=== PATIENT | female | born 1980 | race Hispanic/Latino ===

== ENCOUNTER 2018-12-20 00:27 | Observation (INO) | payer BC, OTHER ==
[~2018-12-20] VITALS: Ht 152.4 cm; Wt 62.6 kg
[2018-12-20] MEDS ORDERED: LACTATED RINGERS 1000ML 1,000 ML IV PRN (00:46)
[2018-12-20 01:04] LABS: APPEARANCE,URINE Clear (CLEAR); BILIRUBIN,URINE Negative (NEGATIVE); COLOR,URINE Yellow (YELLOW); GLUCOSE, URINE (UA) Negative (NEGATIVE); KETONES,URINE 15 mg/dL (NEGATIVE); LEUKOCYTE ESTERASE ,URINE Negative (NEGATIVE); NITRATE,URINE Negative (NEGATIVE); OCCULT BLOOD,URINE Negative (NEGATIVE); PH,URINE 6.5 (5.0-8.0); PROTEIN,URINE Negative (NEGATIVE); UROBILINOGEN,URINE 0.2 mg/dL (0.2-1.0)
[2018-12-20 01:19] LABS: AMPHET/METH SCREEN,URINE NEGATIVE (NEGATIVE); BARBITURATE SCREEN, URINE NEGATIVE (NEGATIVE); BENZODIAZEPINES SCREEN,URINE NEGATIVE (NEGATIVE); CANNABINOID SCREEN,URINE NEGATIVE (NEGATIVE); COCAINE SCREEN,URINE NEGATIVE (NEGATIVE); OPIATE SCREEN,URINE NEGATIVE (NEGATIVE); PHENCYCLIDINE SCREEN,URINE NEGATIVE (NEGATIVE)
[2018-12-20 01:32] LABS: HEMATOCRIT 33.1 % (36-48); MEAN CORPUSCULAR HEMOGLOBIN 30.4 pg (27.0-33.0); MEAN CORPUSCULAR HGB CONC 33.8 g/dL (32.0-36.0); PLATELET COUNT (AUTO) 228 K/uL (130-400); RED BLOOD CELL COUNT(AUTO) 3.68 MIL/uL (4.00-5.50); RED CELL DISTRIBUTION WIDTH 14.1 % (11.0-15.5)
[2018-12-20] MEDS ORDERED: MAGNESIUM SULFATE 1,000 ML IV PRN (01:32)
[2018-12-20] MEDS ORDERED: AMPICILLIN 2GM+NS 100ML 100 ML IV ONE (01:35)
[2018-12-20] MEDS ORDERED: MAGNESIUM 4GM PREMIX 100ML 100 ML IV ONE (01:36)
[2018-12-20] MEDS ORDERED: MAGNESIUM SULFATE 1,000 ML IV ONE (01:36)
[2018-12-20] MEDS ORDERED: DEXAMETHASONE SOD PHOSPHATE 4 MG/ML 1ML VIAL ONE (01:36)
[2018-12-20] MEDS ORDERED: MAGNESIUM 4GM PREMIX 100ML 100 ML IV SCH (01:45)
[2018-12-20] MEDS ORDERED: CALCIUM GLUCONATE 1 GM/10 ML VIAL IV PRN (01:45)
[2018-12-20] MEDS: LACTATED RINGERS 1000ML 1,000 ML IV SCH ×2 (01:49→06:34)
[2018-12-20 07:09] LABS: RAPID PLASMA REAGIN NONREACTIVE (NONREACTIVE)
[2018-12-20] MEDS: AMPICILLIN 2GM+NS 100ML 100 ML IV SCH ×4 (07:59→20:02)
[2018-12-20] MEDS: DEXAMETHASONE SOD PHOSPHATE 4 MG/ML 1ML VIAL IM SCH ×3 (08:00→20:02)
[2018-12-20] MEDS ORDERED: ONDANSETRON HCL 4 MG/2 ML VIAL IVP PRN (23:45)
[2018-12-20] MEDS ORDERED: ONDANSETRON HCL 4 MG/2 ML VIAL ONE (23:53)
[2018-12-21] MEDS: AMPICILLIN 2GM+NS 100ML 100 ML IV SCH (03:31)
[2018-12-22 08:21] LABS: HEPATITIS Bs ANTIGEN SCREEN P Negative (Negative)
== END 2018-12-21 09:23 | disposition home or self-care (01) ==
LOC: EDH 00:27 → LDH 00:28
PROVIDERS: ADMIT Specialist; ATTEND Specialist
DX: O60.03 Preterm labor without delivery, third trimester (principal); O09.523 Supervision of elderly multigravida, third trimester; O26.893 Other specified pregnancy related conditions, third trimester; R42 Dizziness and giddiness; Z3A.32 32 weeks gestation of pregnancy; R11.0 Nausea; Z79.899 Other long term (current) drug therapy
CPT/HCPCS: 36415; 80305; 81003; 83735 ×2; 85027; 86592; 86701; 86850; 86900; 86901; 87340; 87390; 96365; 96366 ×2; 96368; 96372; 99283; A4314; A4510; A4600; G0378 ×33; J0290 ×5; J1100 ×4; J2405; J3475 ×3; J7120 ×4; 96375; 96376